=== PATIENT | male | born 1955 | race Caucasian/White ===

== ENCOUNTER 2018-05-17 08:37 | Day surgery (SDC) | payer OTHER, SELFPAY ==
[2018-05-17 09:03] VITALS: BP 135/87; PULSE 59; RESP 16; TEMP 36.5; O2SAT 96; BMI 32.0
--- NOTE | 2018-05-17 10:15 | TUR_PTH ---
PATIENT: JEN LOUIS [place] [facility] [place][id number] AGE/SX: 62/M ROOM: RE05/17/[address]: Dr. Reji Adams MD : 1955 BED: DIS: 05/17/2018 SPEC #: [id number] RECD: 05/17/18 12:07 STATUS: GLENIS LUIZ #: [id number] BETY: 05/17/18 10:[address]: Reji Adams DEPT: SURGICAL PATHOLOGY RECD BY: Miguel Dixon ENTERED: 05/17/18 12:34 SP TYPE: TURBINATES OTHR DR: Betty Salazar, SCIENCE J[employer] TITLES-Trent Tissues: Nasal turbinate, NOS Procedures: Surgery Specimen Level III HEADER OPERATION: Submucous, resect/inferior turbinates PRE-OP DIAGNOSIS: Hypertrophy of nasal turbinates, dry nasal mucosa TISSUE SUBMITTED: Right inferior turbinate tissue MICROSCOPIC DIAGNOSIS Right inferior turbinate tissue, excision: Rare respiratory epithelial cells. Degenerating inflammatory cells. Blood. AM:nyla 05/20/18 COMMENT There is no evidence of malignancy. Clinical correlation is suggested. MICROSCOPIC DESCRIPTION Slides are reviewed. GROSS DESCRIPTION Received in fixative is one container labeled with the patient's name and designated bilateral inferior turbinate contents. The specimen consists of multiple fragments of hemorrhagic soft tissue that in aggregate measure 2.5 x 0.5 x <0.1 cm. The entire specimen is submitted in one cassette. / SJ:nyla 05/17/18 TC:5 CPT: 71339
[2018-05-17] MEDS: Lidocaine 4% 50 ML Bottle (10:45)
[2018-05-17] MEDS: Oxymetazoline 0.05% 1 SPRAY SPRAY.BTL 15 SPRAY (10:45)
[2018-05-17] MEDS: Bacitracin 500 UNITS/GM PACKET (10:58)
--- NOTE | 2018-05-17 11:05 | PCM.OPRPT ---
Problem List (1) Hypertrophy of nasal turbinates Status: Chronic Report of Operation Date of Procedure: 05/17/18 Pre-Operative Diagnosis: Hypertrophy of bilateral inferior nasal turbinates Post-Operative Diagnosis: same Surgery/Procedure Performed:: Bilateral submucous resection of inferior nasal turbinates Description of Surgical Findings:: Luis is a 62-year-old male complains of chronic nasal obstruction failing appropriate medical therapy. He has some distant nasal surgery which had given some relief but had recurrence of his nasal obstruction examination showed bilateral hypertrophy of the inferior turbinates and reduction in hopes of improvement of his obstruction point was offered. The risks, alternatives, potential benefits, and complications were discussed at length and any questions answered to the patient and/or caregiver's satisfaction. Witnessed informed consent was obtained in the office, and the patient and/or caregiver was agreeable to proceed. Procedure went as follows: The patient is identified in the preoperative holding brought to the operating was placed under general anesthesia and intubated. When appropriate anesthesia is obtained, the nasal cavities were examined where there is noted to be bilateral hypertrophy of the inferior turbinates. Soaked in a 50-50 mixture of topical oxymetazoline and 4% lidocaine were then placed for decongestion. Attention was then turned to the inferior nasal turbinates. Anterior aspect of the inferior turbinate was then injected with 1% lidocaine with 100,000 epinephrine for a total of 2.5 mL bilaterally and then beginning on the left side a 15 blade scalpel used to create a stab incision in the anterior aspect of the turbinate. A caudal elevator was then used to elevate a submucosal plane. Using the microdebrider the anterior bony intervening submucosal was then removed resulting in excellent reduction of the inferior turbinate. Similar procedure was then completed on the contralateral side. Gasca splints were then applied after coating with bacitracin ointment and secured to the columella with a single 3-0 Prolene suture. The patient was then returned to anesthesia, was revived and extubated having tolerated the procedure well without complications. Anesthesiologist: Osman Zurita Special Medications: none Specimen's removed: inferior turbinate contents bilaterally Drains: none Estimated Blood Loss (mL): 25 mL Fluids Replaced: 900 mL Grafts/Implants Used: Gasca splints - Complications none - Admit VTE Documentation VTE Present on Admission: No VTE Mechan Device Prophylaxis: SCD's VTE Pharm Prophylaxis ordered?: No
--- NOTE | 2018-05-17 11:13 | DCINST_ITS ---
- Discharge Diagnoses Current Active Problems: Current Active and Chronic Problems Hypertrophy of nasal turbinates (Chronic) You will use the following diet at home:: Regular Discharge Activity: Return to Normal Activity, No Restrictions, May not drive while taking narcotic pain medications. Call your doctor if your incision/area has: Continuous Slow Oozing, Sudden Increased Bleeding Call your doctor if you observe: Fever of 101 or Higher, Uncontrolled pain Allergies/Adverse Reactions: Allergies technetium-99m Allergy (Verified 05/14/18 14:30) Hives Medications to take at Discharge Levothyroxine [Synthroid] 150 mcg PO DAILY 05/14/18 Primary Care Physician: Betty Salazar NP-C [Primary Care Provider] - Test Results: Test results from this visit will be discussed in further detail at your follow- up appointment, if applicable. Please Follow Up With: Reji Adams MD When: 5 days
[2018-05-17 11:15] VITALS: BP 135/87; BP 136/83; PULSE 66; RESP 16; TEMP 37; O2SAT 95
[2018-05-17 11:30] VITALS: BP 132/78; BP 135/87; PULSE 68; RESP 16; O2SAT 98
[2018-05-17 11:45] VITALS: BP 132/80; BP 135/87; PULSE 57; RESP 16; TEMP 36.7; O2SAT 97
[2018-05-17 12:10] VITALS: BP 135/87
--- OUTSIDE RECORDS SUMMARY | 2018-07-12 03:19 | XMS RPT_ITS ---
:1955 Author Organization [facility] Care Team Providers Name Role Phone THEODORA EDWARDS, MS. ZOE Mcleod Attending Unavailable JEN BLEVINS MD Primary Care Unavailable MS. ZOE SALAZAR CNP Attending Unavailable JEN BLEVINS MD Primary Care Unavailable YOVANA MACHUCA MD Attending Unavailable YOVANA MACHUCA MD Referring Unavailable MS. ZOE SALAZAR CNP Primary Care Unavailable Reji Adams Attending Unavailable Zoe Salazar BILLING MANAGER-C Primary Care Unavailable Reji Adams Referring Unavailable PROBLEMS PROBLEMS No Problem Records FoundPROCEDURES PROCEDURES No Procedure Records FoundRESULTS RESULTS DISCHARGE INSTRUCTION Observed: 05/17/2018 Status: F Source: KRYSTIAN 11:13 AM [facility] [place] REPOSITORY [facility] Medical Records Department [address] [address] Instructions for Home/Discharge Instructions 05/17/18 1112 MR#: [id number] Acct: [id number] Name: JEN LOUIS Rep #: [id number] : 1955 62 From: Reji Adams MD PCP: Zoe Spence [place] [facility] [place] Diagnoses Current Active Problems: Current Active and Chronic Problems Hypertrophy of nasal turbinates (Chronic) You will use the following diet at home:: Regular Discharge Activity: Return to Normal Activity, No Restrictions, May not drive while taking narcotic pain medications. Call your doctor if your incision/area has: Continuous Slow Oozing, Sudden Increased Bleeding Call your doctor if you observe: Fever of 101 or Higher, Uncontrolled pain Allergies/Adverse Reactions: Allergies technetium-99m Allergy (Verified 05/14/18 14:30) Hives Medications to take at Discharge Levothyroxine [Synthroid] 150 mcg PO DAILY 05/14/18 Primary Care Physician: Zoe Salazar NP-C [Primary Care Provider] - Test Results: Test results from this visit will be discussed in further detail at your follow-up appointment, if applicable. Please Follow Up With: Reji Adams MD When: 5 days 05/17/181112 <Electronically signed by Reji Adams MD> Date Reji Adams MD CC: Zoe CAMPBELL TURBINATES Observed: 05/17/2018 Status: F Source: KRYSTIAN 10:15 AM [facility] REPOSITORY Patient: JEN LOUIS : 1955 (62/M) Acct Num: [id number] Phys: Reji Adams MD Unit Num: [id number] [place] [facility] [place]: [id number] Received: 05/17/18 - 1207 Spec Type: TURBINATES TISSUES 1 TISSUES: Nasal turbinate, NOS COMMENT There is no evidence of malignancy. Clinical correlation is suggested. GROSS DESCRIPTION Received in fixative is one container labeled with the patient's name and designated bilateral inferior turbinate contents. The specimen consists of multiple fragments of hemorrhagic soft tissue that in aggregate measure 2.5 x 0.5 x <0.1 cm. The entire specimen is submitted in one cassette. / SJ:nyla TC:5 CPT: 58797 HEADER OPERATION: Submucous, resect/inferior turbinates PRE-OP DIAGNOSIS: Hypertrophy of nasal turbinates, dry nasal mucosa TISSUE SUBMITTED: Right inferior turbinate tissue MICROSCOPIC DESCRIPTION Slides are reviewed. MICROSCOPIC DIAGNOSIS Right inferior turbinate tissue, excision: Rare respiratory epithelial cells. Degenerating inflammatory cells. Blood. AM:nyla 05/20/18 Signed Cornelius [facility] 05/21/18 <signature on file> Performed By: #### PTUR #### [facility] [address] [place] [address]. [place], [address] [place] MYOCARDIAL SPECT Observed: 04/15/2018 Status: F Source: THOMAS STRESS/REST 8:00 AM [facility] REPOSITORY ORIGINAL [place] MYOCARDIAL SPECT STRESS/REST CLINICAL STATEMENT:SOB TECHNIQUE: Stress Protocol:Ziyad Time Exercised:9 minutes and 9 seconds Predicted Max HR:160 beats per minute Max HR Achieved:130 beats per minute. Percent Max HR:81 Peak Systolic BP:200 mmHg Rate-Pressure product: 230 Radiopharmaceutical(rest): Tc-99m Sestamibi IV Dose:10.4 mCi Radiopharmaceutical(stress): Tc-99m Sestamibi IV Dose:30.6 mCi SPECT acquisition: SPECT reconstruction and reorientation into short axis, vertical and horizontal long axis planes Quantitative LVEF assessment COMPARISON:None REPORT:On stress images there is a mild decrease in the uptake of activity in the anteroseptal and inferior wall extending to the apex. There is no improvement in the uptake of activity in these areas o n rest images. There otherwise is relatively homogenous uptake of activity in other areas the myocardium. On gated imaging the ejection fraction is normal at 60% with normal wall motion. IMPRESSION: 1. No evidence of significant inducible ischemia or prior myocardial infarction. 2. Normal ejection fraction of 60% with normal wall motion. Interpreted By: Chapincito Wiggins MD Preliminary Report By: Chapincito Wiggins MD Electronically Signed By: Chapincito Wiggins MD Dictated Date: 04/15/2018 12:15:03 PM Prelim Date: 04/15/2018 12:15:03 PM Sign Date: 04/15/2018 12:18:10 PM XR SHOULDER MINIMUM 2 Observed: 01/29/2018 Status: F Source: [facility] VIEWS LEFT 4:30 PM [facility] REPOSITORY ORIGINAL XR SHOULDER MINIMUM 2 VIEWS LEFT CLINICAL STATEMENT: lt shoulder pain COMPARISON: None FINDINGS: 4 views obtained. There is no fracture or traumatic malalignment. Visualized LEFT ribs are intact. LEFT lung is clear to the extent visualized. IMPRESSION: No acute radiographic finding Interpreted By: Luis Kilgore MD Preliminary Report By: Luis Kilgore MD Electronically Signed By: Luis Kilgore MD Dictated Date: 01/30/2018 9:12:13 AM Prelim Date: 01/30/2018 9:12:13 AM Sign Date: 01/30/2018 9:14:03 AM ALLERGIES ALLERGIES DATE TYPE / CODE NAME / CODE REACTION SEVERITY SOURCE 05/14/2018 Drug technetium-9 Hives Unknown [facility] Allergy/4160 9m/[id number] Hospital 71230(SNOMED 7(RXNORM) Repository CT) ENCOUNTERS ENCOUNTERS ADMIT/DISCHARGE ACCOUNT NUMBER ADMITTING ENCOUNTER LOCATION SOURCE CLASS 05/17/2018/05/17/20 [id number] [facility] [facility] [address] [place] [address] ding:SDCRoo Repository : AC07 04/30/2018 [id number] Ambulatory BBuilding:[facility] Repository 04/15/2018/04/15/20 [id number] Ambulatory [address] ding:CVT [facility] Repository 01/29/2018/01/30/20 [id number] Ambulatory [address] ding:[facility] Repository PAYERS PAYERS ENCOUNTER GUARANTOR PAYER SUBSCRIBER SOURCE 05/17/2018 JEN Boland [id number] Insurance:Vishal GARCIA: [facility] Number: [id number] [id number]ository [place] [address]Rqh: Date:[id number] [address] [place] [address] () [address]: 05/17/2018 Secondary NOT GIVENUNK Krystian Insurance:SELF PAY [facility] Number: Effective Repository Date:2018-05-06 04/30/2018 [facility] Insurance:AETDINO CEJALISAEDOB: [facility] [id number] NACPolicy Number: [id number] Repository [facility] [id number] [address] [facility], Date:2018-04-29 - [place], [place] [address]Mfo: [id number] [place] [address]Jsg: Name:CP O BOX (HP)Tel: [phone], [place] () (WP) [phone]: ([phone] 04/15/2018 JEN E [facility]: Insurance:MerlynDINO CEJASETHOB: [facility] [id number] NACPolicy Number: [id number] Repository [facility] [id number] [address] [facility], Date:2018-04-05 - [place], [place] [address]Tim: [id number] [place] [address]Gwb: Name:AP O BOX (HP)Tel: [phone] [place] () (WP) [phone]: (wp) [phone] 01/29/2018 JEN E [facility]: Insurance:AETNA MARCIALLISAEDOB: [facility] [id number] NACPolicy Number: [id number] Repository [facility] [id number] [address] [facility], Date:2018-01-29 - [place], [place] [address]Hko: [id number] [place] [address]Nip: Name:ANGÉLICA ARRIAZA ()Tel: [phone] SHARP () (WP) [phone]: [phone]
== END 2018-05-17 12:15 | disposition home or self-care (01) ==
LOC: SDC 08:38 → AC 08:41
PROVIDERS: Family Provider Nurse Practitioner Primary Care; PCP Nurse Practitioner Primary Care; Referring Provider Otolaryngology; Visit Provider Otolaryngology
PROC: (CPT 30520; principal; 2018-05-17 10:00)
DX: J34.3 Hypertrophy of nasal turbinates (principal); Z87.891 Personal history of nicotine dependence; J34.89 Other specified disorders of nose and nasal sinuses
CPT/HCPCS: 00160; 30140; 88304; J7120; J2405

== ENCOUNTER → 2022-11-20 | Outpatient (CLI) | payer OTHER, SELFPAY ==
--- NOTE | 2022-11-20 10:40 | RAD_ITS ---
STUDY: X-RAY - CERVICAL SPINE REASON FOR EXAM: Male, 67 years old. CERVICALGIA TECHNIQUE: XR Spine Cervical 5 Views COMPARISON: None FINDINGS: Normal anterior atlantoaxial articulation. The odontoid process is obscured by the overlying hard palate on the open mouth view. Therefore, it is not fully evaluated by plain film. There is straightening of the normal cervical lordosis. There is multi-level endplate spondylosis. There is multi-level degenerative disc disease with multilevel disc space narrowing. There is multi-level osseous foraminal stenosis. The soft tissue structures are unremarkable. RAD/Cerv Spine 4 or 5 Views IMPRESSION: There are degenerative changes as noted above. There is mild straightening of the normal cervical lordosis. This can suggest neck strain. The odontoid process is obscured by the overlying hard palate on the open mouth view. Therefore, it is not fully evaluated by plain film. Electronically Signed: Jd Howard MD at 19:58 EDT ,
== END | disposition home or self-care (01) ==
LOC: RAD 10:39
PROVIDERS: PCP Nurse Practitioner Primary Care; Referring Provider Chiropractor; Visit Provider Chiropractor
DX: M50.30 Other cervical disc degeneration, unspecified cervical region (principal)
CPT/HCPCS: 72050

== ENCOUNTER → 2024-07-23 | Outpatient (CLI) | payer MEDICARE, OTHER, SELFPAY ==
--- NOTE | 2024-07-23 13:57 | NEURO ---
NCS and/or EMG Patient Report Ordering Doctor: Jasmine Crystal DATE OF SERVICE: 07/23/24 Luis presents for electrodiagnostic testing of the upper limbs. He reports numbness and tingling in both hands. Electrodiagnostic findings: Left median motor nerve demonstrates prolonged distal latency with normal amplitude and conduction velocity. Right median motor nerve demonstrates normal distal latency, amplitude and conduction velocity. Ulnar motor response within normal limits bilaterally. Normal median and ulnar F?waves. Prolonged left median sensory latency at the wrist. Normal right median sensory response. Normal ulnar and radial sensory responses. Electrodiagnostic impression: This is an abnormal study in the upper limbs 1. Electrodiagnostic findings suggestive of left-sided median mononeuropathy. This consistent with a mild left carpal tunnel syndrome. There is no definitive electrodiagnostic evidence for right sided carpal tunnel syndrome Multi Select Codes Neurology Neurology Interp Codes: 51001-51 Musc test done w/n test comp (interp) and 51660-28 Nrv cndj test 7-8 studies (interp)
== END | disposition home or self-care (01) ==
PROVIDERS: PCP Student in an Organized Health Care Education/Training Program; Referring Provider Physician Assistant Surgical; Visit Provider Physician Assistant Surgical
DX: G56.03 Carpal tunnel syndrome, bilateral upper limbs (principal)
CPT/HCPCS: 95886; 95912